=== PATIENT | female | born 1955 | race Caucasian/White ===

== ENCOUNTER 2024-11-27 11:21 | Day surgery (SDC) | payer MEDICARE, SELFPAY ==
[2024-11-20 09:28] VITALS: BMI 29.2
[2024-11-27 11:42] VITALS: BP 155/103; PULSE 90; RESP 16; TEMP 36.1; O2SAT 97
[2024-11-27] MEDS: LACTATED RINGERS 1000ML 1,000 ML 50 ML IV (11:48)
--- NOTE | 2024-11-27 11:59 | EXP.HP ---
History of Present Illness *Admission Date: 11/27/24 *Reason for visit:: Personal history of adenomatous colon polyps *History of present illness: Mrs. Quesada is a 69-year-old female who is here for surveillance colonoscopy secondary to a personal history of adenomatous colon polyps. She did have a colonoscopy in October 2018 and had 4 polyps (tubular adenomas x 3/mucosal prolapse polyp x 1) which were removed. The examination is deemed medically necessary for surveillance colonoscopy. The patient has been seen, interviewed and examined prior to the procedure by both myself and the anesthesia provider. [facility] Disclaimer: The information contained in this section may have been updated after the patient was seen, as this information can be updated by other users. Medical History (Updated 11/27/24 @ 12:00 by Jeremy Barone II, MD) Melanoma Multiple sclerosis Surgical History S/P excision of thyroid adenoma History of section Family History Other Family history of hemochromatosis Social History Smoking Status: Former smoker alcohol intake: former current occupational status: retired Travel in the last 8 weeks?: None Have you lived/traveled outside [place] in past 30 days?: No Contact w/someone who lives/traveled outside [place] past 30 days?: No Exposure to someone with infectious disease in past 14 days?: No Do you have a fever (greater than 100.4 F or 38 C)?: No Have you tested positive for COVID-19?: No Exposed to someone with COVID-19 in past 14 days?: No Do you have a sore throat?: No Do you have a cough?: No Do you have any weakness?: No Are you experiencing any nausea/vomitting?: No Do you have any diarrhea?: No Are you experiencing any unusual bleeding?: No Do you have any muscle aches/pain?: No Do you have any abdominal pain?: No Are you experiencing loss of taste or smell?: No Review of Systems Review of Systems Review of systems (narrative): Negative *Cardiovascular Comments: Negative *Gastrointestinal Comments: Negative *Genitourinary Comments: Negative *Musculoskeletal Comments: Negative *Neurologic Comments: Negative Meds Home Medications and Allergies Home Medications ?Medication ?Instructions ?Recorded ?Confirmed ?Type calcium phosphate,dibasic 77 1 tab PO DAILY 11/20/24 11/20/24 History mg-vitamin D3 400 unit tablet estradiol 0.025 mg/24 hr 0.025 mg transdermal WEEKLY 11/20/24 11/20/24 History semiweekly transdermal patch fexofenadine 60 mg tablet (Paulette 60 mg PO DAILY 11/20/24 11/20/24 History Allergy) levothyroxine 25 mcg tablet 25 mcg PO DAILY 11/20/24 11/20/24 History (Synthroid) modafinil 200 mg tablet 200 mg PO DAILY 11/20/24 11/20/24 History sertraline 50 mg tablet (Zoloft) 50 mg PO DAILY 11/20/24 11/20/24 History New Prescriptions to Start Prescriptions: Allergies Allergy/AdvReac Type Severity Reaction Status Date / Time Penicillins Allergy Mild Hives Verified 11/27/24 11:41 Sulfa (Sulfonamide Allergy Mild Muscle Pain Verified 11/27/24 11:41 Antibiotics) Exam Data for Last 24 hours Vital signs and Labs for Last 24 Hours: Temp Pulse Resp BP Pulse Ox O2 Del Method 97 F L 90 16 155/103 H 97 Room Air 11/27/24 11:42 11/27/24 11:42 11/27/24 11:42 11/27/24 11:42 11/27/24 11:42 11/27/24 11:42 *Routine HEENT Exam Head: Present normocephalic Eye: Present EOMI and PERRL ENT: Present mucous membranes moist *Routine Neck Exam Neck: Present supple *Routine Respiratory Exam Respiratory: Present CTA bilaterally *Routine Cardiovascular Exam Cardiovascular: Present RRR *Routine Abdominal Exam Abdominal: Present soft and normoactive bowel sounds; Absent tenderness *Routine Rectal Exam Rectal:: deferred *Routine Genitalia Exam Genitalia:: deferred *Routine Extremities Exam Extremities: Absent cyanosis, clubbing or edema *Routine Skin Exam Skin: Present warm; Absent rash *Routine Neurological Exam Neurological: Present alert and oriented X3 Assessment and Plan *Assessment and plan (1) Personal history of adenomatous and serrated colon polyps: Status: Acute Category: Medical Code(s): Z86.0101 - Personal history of adenomatous and serrated colon polyps Plan A/P: 1. Personal history of adenomatous colon polyps is the preprocedural diagnosis. The patient will be anesthetized/sedated using MAC sedation. The patient has been seen and examined. Cardiac and lung assessment prior to the examination is stable. Proceed with planned surveillance colonoscopy.
--- NOTE | 2024-11-27 12:03 | P.PNANES_ITS ---
[facility] Disclaimer: The information contained in this section may have been updated after the patient was seen, as this information can be updated by other users. Medical History Melanoma Multiple sclerosis Surgical History S/P excision of thyroid adenoma History of section Family History Other Family history of hemochromatosis Social History Smoking Status: Former smoker alcohol intake: former substance use type: unknown current occupational status: retired Travel in the last 8 weeks?: None [facility] Anesthesia Checklist Patient Identification Patient Identification: Arm Band and Verbal (Name & ) Structural Data Admitted From: Home Planned Operative Procedure/s: colonscopy Consent for Planned Operative Procedure(s) Verified: Yes Verified Documents: Surgical Consent and History and Physical NPO Status Verified Time NPO: 00:00 Additional verifications Anesthesia Reactions: No Previous Colonoscopy: Yes Airway Assessment Mallampati Score:: Class II Dentition: Good Dentition Neurological Assessment Level of Consciousness: Awake, Alert and Appropriate Hx Seizures: No Anesthesia Plan Anesthesia Risk discussed: Yes Anesthesia Plan: Verified ASA Class: II Anesthesia Type: MAC
--- NOTE | 2024-11-27 12:05 | P.PCN_ITS ---
[facility] Procedure Note Date: 11/27/24 Time: 12:23 Procedure Note:: Colonoscopy Procedure Report: Colonoscopy with cold snare polypectomy Endoscopist: Jeremy Braone II, MD Referring physician: Annel Montero DO, [address] [place] [address] Date of Procedure: November 27, 2024 Equipment: Olympus 190 variable stiffness pediatric colonoscope Sedation: MAC sedation Indication: Mrs. Quesada is a 69-year-old female who is here for follow-up surveillance colonoscopy secondary to a personal history of adenomatous colon polyps. The patient did have a colonoscopy in October 2018 and had 4 polyps (tubular adenomas x 3/mucosal prolapse polyp x 1) removed. She reports no abd ominal pain, weight loss, change in her bowel habits or rectal bleeding. She reports no family history of colon cancer. Procedure: Prior to the procedure, a history and physical exam was performed, and patient's medications and allergies were reviewed. The risks, benefits and alternatives of the sedation and procedure were discussed with the patient. All questions were answered and informed consent was obtained. The patient was brought to the procedure room. Patient identification and proposed procedure were verified by the physician and the nurse. The patient was placed in a left lateral decubitus position and the scope was passed under direct vision. Throughout the procedure, the patient's blood pressure, pulse, and oxygen saturations were monitored continuously. The colonoscopy was accomplished without difficulty. The patient tolerated the procedure well. Findings: On digital rectal examination there was normal rectal tone. There were no external hemorrhoids. The colonoscope was introduced through the anal canal to the rectum and advanced to the cecum. The ileocecal valve and appendiceal orifice were identified. The scope was advanced a short distance into the ileum which appeared grossly normal. The scope was then withdrawn into the colon. There were 3 diminutive polyps (transverse x 2 (3 and 4 mm) and sigmoid x 1 (3 mm)). These were all removed via cold snare polypectomy. The remaining cecum, ascending, transverse, descending, sigmoid and rectum were grossly normal. There were no mucosal abnormalities identified. Upon retroflexion within the rectum there were grade 1-2 internal hemorrhoids. The preparation was excellent throughout with Bern Preparation Score of 9. The cecal time was 12 minutes. Impression: 1. Diminutive colonic polyps x 3 Plan: I will follow-up the polyp histology and recommend repeat surveillance colonoscopy again in 5 to 7 years based upon the pathology.
[2024-11-27 12:24] VITALS: BP 101/58; PULSE 72; RESP 16; TEMP 36.1; O2SAT 96
[2024-11-27 12:34] VITALS: BP 101/65; PULSE 62; RESP 17; TEMP 36.1; O2SAT 100
[2024-11-27 12:44] VITALS: BP 107/74; PULSE 76; RESP 18; TEMP 36.1; O2SAT 100
[2024-11-27 12:54] VITALS: BP 109/71; PULSE 67; RESP 18; TEMP 36.1; O2SAT 99
== END 2024-11-27 13:09 | disposition home or self-care (01) ==
PROVIDERS: PCP Internal Medicine; Visit Provider Internal Medicine Gastroenterology
PROC: 0DJD8ZZ Inspection of Lower Intestinal Tract, Via Natural or Artificial Opening Endoscopic (ICD-10-PCS; CPT 45378; principal; 2024-11-27 13:00)
DX: Z12.11 Encounter for screening for malignant neoplasm of colon (principal); D12.5 Benign neoplasm of sigmoid colon; D12.3 Benign neoplasm of transverse colon; K64.0 First degree hemorrhoids; K64.1 Second degree hemorrhoids; Z88.0 Allergy status to penicillin; Z88.2 Allergy status to sulfonamides; Z87.891 Personal history of nicotine dependence; Z86.0101 Personal history of adenomatous and serrated colon polyps
CPT/HCPCS: 45385; 88305; J2003; J2704; J7120